=== PATIENT | male | born 1970 | race Caucasian/White ===

== ENCOUNTER 2016-12-28 19:47 | Emergency (ER) | payer SELFPAY ==
[~2016-12-28] VITALS: Ht 190.5 cm; Wt 114.8 kg
[2016-12-28 19:58] VITALS: BP 141/99
== END 2016-12-28 20:00 | disposition left against medical advice (07) ==
LOC: ED 19:47
DX: R07.81 Pleurodynia (principal); Z53.21 Procedure and treatment not carried out due to patient leaving prior to being seen by health care provider; F17.200 Nicotine dependence, unspecified, uncomplicated; W18.2XXA Fall in (into) shower or empty bathtub, initial encounter; Y93.89 Activity, other specified; Y92.9 Unspecified place or not applicable; Y99.9 Unspecified external cause status

== ENCOUNTER 2018-07-01 16:56 | Emergency (ER) | payer SELFPAY ==
[2018-07-01 16:59] VITALS: BP 121/91
== END 2018-07-01 17:31 | disposition home or self-care (01) ==
LOC: ED 16:56
DX: F10.129 Alcohol abuse with intoxication, unspecified (principal); Z51.89 Encounter for other specified aftercare; F17.200 Nicotine dependence, unspecified, uncomplicated

== ENCOUNTER 2018-07-07 10:43 | Inpatient (IN) | payer SELFPAY ==
[~2018-07-07] VITALS: Ht 188 cm; Wt 121.1 kg
[2018-07-07 10:44] VITALS: BP 150/108
[2018-07-07 11:02] LABS: BASO # 0.1 10*3/uL (0.0-0.1); BASO % 0.7 % (0.0-1.0); EOS # 0.3 10*3/uL (0.0-0.4); EOS % 4.3 % (1.0-4.0); HEMATOCRIT 44.8 % (42.0-52.0); HEMOGLOBIN 15.4 g/dl (14.0-18.0); LYMPH # 2.4 10*3/uL (1.3-4.4); LYMPH % 33.8 % (27.0-41.0); MEAN CELL VOLUME 92.9 fl (80.0-94.0); MEAN CORPUSCULAR HGB CONC 34.4 g/dl (33.0-37.0); MEAN PLATELET VOLUME 10.8 fl (9.6-12.3); MONO # 0.7 10*3/uL (0.1-1.0); MONO % 10.2 % (3.0-9.0); NEUT # 3.6 10*3/uL (2.3-7.9); NEUT % 50.7 % (47.0-73.0); PLATELET COUNT AUTOMATED 81 10*3/uL (130-400); RED BLOOD COUNT 4.82 10*6/uL (4.50-5.90); RED CELL DISTRI WIDTH 12.7 % (0-14.5); WHITE BLOOD COUNT 7.2 10*3/uL (4.8-10.8)
[2018-07-07 11:12] LABS: ACT PARTIAL THROMBO TIME 23.4 SECONDS (20.8-31.5); INTERNATIONAL NORM RATIO 0.9 (2.0-3.5)
[2018-07-07 11:17] LABS: ACETAMINOPHEN (TYLENOL) < 5.0 ug/ml (10-30); ALBUMIN 4.1 gm/dl (3.1-4.5); ALKALINE PHOSPHATASE 75 U/L (45-117); BUN 12 mg/dl (7-24); CHLORIDE 105 mmol/L (98-107); CREATININE 0.75 mg/dL (0.70-1.30); POTASSIUM 3.9 mmol/L (3.5-5.1); SGOT/AST 66 IU/L (3-35); SGPT/ALT 58 U/L (12-78); SODIUM 137 mmol/L (136-145); TOTAL PROTEIN 7.8 gm/dL (6.4-8.2)
[2018-07-07 11:21] LABS: BILIRUBIN NEGATIVE (NEGATIVE); BLOOD TRACE-INTACT (NEGATIVE); CLARITY CLEAR (CLEAR); COLOR YELLOW (YELLOW); GLUCOSE NEGATIVE (NEGATIVE); KETONE NEGATIVE (NEGATIVE); LEUKO ESTERASE NEGATIVE (NEGATIVE); NITRITE NEGATIVE (NEGATIVE); PH 5.5 (5.0-9.0); SPECIFIC GRAVITY <= 1.005 (1.005-1.030); UROBILINOGEN 0.2 E.U./dl (0.2-1.0)
[2018-07-07 11:30] LABS: URINE AMPHETAMINES < 1000 (1000ng/ml); URINE BARBITURATES < 200 (200ng/ml); URINE BENZODIAZEPINES < 200 (200ng/ml); URINE CANNABINOIDS (THC) < 50 (50ng/ml); URINE COCAINE < 300 (300ng/ml); URINE METHADONE < 300 (300ng/ml); URINE OPIATES < 300 (300ng/ml)
[2018-07-07 11:33] LABS: URINE PHENCYCLIDINE < 25 (25ng/ml)
[2018-07-07 12:05] VITALS: BP 140/92
[2018-07-07 16:00] VITALS: BP 155/110
[2018-07-07 20:00] VITALS: BP 146/70
[2018-07-08] VITALS: BP 159/97
[2018-07-08 04:00] VITALS: BP 150/98
[2018-07-08 06:18] LABS: BASO % 0.5 % (0.0-1.0); EOS # 0.3 10*3/uL (0.0-0.4); EOS % 3.6 % (1.0-4.0); HEMATOCRIT 40.5 % (42.0-52.0); HEMOGLOBIN 13.5 g/dl (14.0-18.0); LYMPH # 1.8 10*3/uL (1.3-4.4); MEAN CELL VOLUME 94.4 fl (80.0-94.0); MEAN CORPUSCULAR HGB 31.5 pg (27.0-31.0); MEAN CORPUSCULAR HGB CONC 33.3 g/dl (33.0-37.0); MEAN PLATELET VOLUME 10.6 fl (9.6-12.3); MONO # 0.7 10*3/uL (0.1-1.0); MONO % 9.2 % (3.0-9.0); NEUT # 4.7 10*3/uL (2.3-7.9); NEUT % 62.3 % (47.0-73.0); PLATELET COUNT AUTOMATED 75 10*3/uL (130-400); RED BLOOD COUNT 4.29 10*6/uL (4.50-5.90); RED CELL DISTRI WIDTH 12.9 % (0-14.5); WHITE BLOOD COUNT 7.5 10*3/uL (4.8-10.8)
[2018-07-08 06:46] LABS: BUN 12 mg/dl (7-24); CHLORIDE 106 mmol/L (98-107); CHOLESTEROL 177 mg/dL (<200); CREATININE 0.64 mg/dL (0.70-1.30); HDL CHOLESTEROL 57 mg/dl (40-60); LDL CHOLESTEROL 103 mg/dL (9-159); PHOSPHOROUS 3.1 mg/dL (2.5-4.9); POTASSIUM 3.7 mmol/L (3.5-5.1); SODIUM 140 mmol/L (136-145); TRIGLYCERIDES 83 mg/dl (<150); VLDL CHOLESTEROL 17 mg/dL (6-40)
[2018-07-08 07:44] LABS: VITAMIN D, 25-HYDROXY 11.3 ng/mL (30-100)
[2018-07-08 08:00] VITALS: BP 178/100
[2018-07-08 12:00] VITALS: BP 168/90
[2018-07-08 16:00] VITALS: BP 170/106
[2018-07-08 20:00] VITALS: BP 160/100
[2018-07-09] VITALS: BP 160/102
== END 2018-07-09 03:50 | disposition left against medical advice (07) | DRG 813 ==
LOC: ED 10:43 → EDHOLD 11:07 → ICCU 11:52
PROVIDERS: Internal Medicine; Nurse Practitioner Family
DX: D69.6 Thrombocytopenia, unspecified (principal); R73.9 Hyperglycemia, unspecified; R74.0 Nonspecific elevation of levels of transaminase and lactic acid dehydrogenase [LDH]; R60.0 Localized edema; R06.09 Other forms of dyspnea; R05 Cough; R03.0 Elevated blood-pressure reading, without diagnosis of hypertension; R31.21 Asymptomatic microscopic hematuria; F10.129 Alcohol abuse with intoxication, unspecified; F17.210 Nicotine dependence, cigarettes, uncomplicated; E66.9 Obesity, unspecified; D64.9 Anemia, unspecified; Z53.20 Procedure and treatment not carried out because of patient's decision for unspecified reasons; E55.9 Vitamin D deficiency, unspecified; Z68.34 Body mass index [BMI] 34.0-34.9, adult; Z71.6 Tobacco abuse counseling

== ENCOUNTER 2019-08-23 13:45 | Emergency (ER) | payer SELFPAY ==
[~2019-08-23] VITALS: Ht 185.4 cm; Wt 106.1 kg
[2019-08-23 13:47] VITALS: BP 138/97
== END 2019-08-23 15:55 | disposition left against medical advice (07) ==
LOC: ED 13:45
DX: R05 Cough (principal); J02.9 Acute pharyngitis, unspecified; R50.9 Fever, unspecified; F17.200 Nicotine dependence, unspecified, uncomplicated

== ENCOUNTER 2020-02-18 16:57 | Emergency (ER) | payer SELFPAY ==
[~2020-02-18 16:57] MED LIST: AMMONIUM LACTA227 GM T; ASPIRIN ADULT L81 MG PO; B-1100 M1 PO; FLONASE ALLERG9.9 ML NAS; LISINOPRIL10 M1 PO; MUCINEX1200 M1 PO; NATURE'S BLEND F1 MG PO; NORVASC10 MG PO; VISTARIL25 M2 PO; VITAMIN D350 MC2 PO; Vitamin D (50,000 UN PO; ZOFRAN4 MG PO
[2020-02-18] MEDS ORDERED: LASIX40 MG PO (17:30)
[2020-02-18 18:01] LABS: HEMATOCRIT 44.1 % (42.0-52.0); MEAN CELL VOLUME 97.4 fl (80.0-94.0); MEAN CORPUSCULAR HGB 31.3 pg (27.0-31.0); MEAN CORPUSCULAR HGB CONC 32.2 g/dl (33.0-37.0); MEAN PLATELET VOLUME 10.9 fl (9.6-12.3); PLATELET COUNT AUTOMATED 165 10*3/uL (130-400); RED BLOOD COUNT 4.53 10*6/uL (4.50-5.90); RED CELL DISTRI WIDTH 12.6 % (0-14.5); WHITE BLOOD COUNT 9.6 10*3/uL (4.8-10.8)
[2020-02-18 18:17] LABS: ALBUMIN 3.6 gm/dl (3.1-4.5); ALKALINE PHOSPHATASE 70 U/L (45-117); BUN 7 mg/dl (7-24); CHLORIDE 105 mmol/L (98-107); CREATININE 0.79 mg/dL (0.70-1.30); POTASSIUM 3.9 mmol/L (3.5-5.1); SGOT/AST 23 IU/L (3-35); SGPT/ALT 41 U/L (12-78); SODIUM 139 mmol/L (136-145); TOTAL PROTEIN 7.4 gm/dL (6.4-8.2)
[2020-02-18 18:20] LABS: ATYPICAL LYMPHS 1 % (0-0); TOTAL CELLS COUNTED 100 #CELLS
[2020-02-18 18:21] LABS: PLATELET SUFFICIENCY NORMAL (NORMAL)
[2020-02-18 18:22] LABS: TROPONIN I < 0.015 ng/ml (<0.045)
[2020-02-18 18:30] VITALS: BP 125/77
== END 2020-02-18 18:40 | disposition home or self-care (01) ==
LOC: ED 16:57
PROVIDERS: Family Medicine
DX: R60.0 Localized edema (principal); I10 Essential (primary) hypertension; F17.200 Nicotine dependence, unspecified, uncomplicated; Z79.899 Other long term (current) drug therapy; Z79.82 Long term (current) use of aspirin

== ENCOUNTER → 2020-03-03 | Outpatient (CLI) | payer SELFPAY ==
[~2020-03-03] MED LIST changes: +LASIX40 MG PO
== END | disposition home or self-care (01) ==
LOC: CP 14:13
DX: J43.9 Emphysema, unspecified (principal)

== ENCOUNTER → 2020-10-22 | Outpatient (CLI) | payer SELFPAY ==
[~2020-10-22] MED LIST changes: +ALDACTONE25 M1 PO; +CIPRO500 MG PO; +FLAGYL500 MG PO
== END | disposition home or self-care (01) ==
LOC: LAB 13:25
PROVIDERS: ATTEND Nurse Practitioner Family
DX: R19.7 Diarrhea, unspecified (principal)

== ENCOUNTER 2020-10-28 19:59 | Inpatient (IN) | payer SELFPAY ==
[~2020-10-28] VITALS: Ht 190.5 cm; Wt 115.8 kg
[~2020-10-28 19:59] MED LIST changes: -ALDACTONE25 M1 PO; -CIPRO500 MG PO; -FLAGYL500 MG PO
[2020-10-28 20:05] VITALS: BP 119/65
[2020-10-28 20:34] LABS: HEMATOCRIT 41.2 % (42.0-52.0); MEAN CELL VOLUME 89.6 fl (80.0-94.0); MEAN CORPUSCULAR HGB 29.8 pg (27.0-31.0); MEAN CORPUSCULAR HGB CONC 33.3 g/dl (33.0-37.0); PLATELET COUNT AUTOMATED 201 10*3/uL (130-400); RED CELL DISTRI WIDTH 13.2 % (0-14.5); WHITE BLOOD COUNT 19.2 10*3/uL (4.8-10.8)
[2020-10-28 20:51] LABS: ALBUMIN 3.7 gm/dl (3.1-4.5); ALKALINE PHOSPHATASE 84 U/L (45-117); ATYPICAL LYMPHS 1 % (0-0); BUN 17 mg/dl (7-24); CHLORIDE 104 mmol/L (98-107); CREATININE 0.86 mg/dL (0.70-1.30); LIPASE 186 U/L (73-393); POTASSIUM 3.8 mmol/L (3.5-5.1); SGOT/AST 14 IU/L (3-35); SGPT/ALT 29 U/L (12-78); SODIUM 137 mmol/L (136-145); TOTAL CELLS COUNTED 100 #CELLS; TOTAL PROTEIN 7.2 gm/dL (6.4-8.2)
[2020-10-28 20:52] LABS: PLATELET SUFFICIENCY NORMAL (NORMAL)
[2020-10-28 21:33] LABS: BILIRUBIN Negative (Negative); BLOOD Negative (Negative); CLARITY Clear (Clear); COLOR Yellow (Yellow); GLUCOSE Negative (Negative); KETONE Negative (Negative); LEUKO ESTERASE Negative (Negative); NITRITE Negative (Negative); SPECIFIC GRAVITY 1.015 (1.001-1.030)
[2020-10-28 21:51] LABS: BACTERIA TRACE; EPITHELIAL CELLS 0-2
[2020-10-28 23:05] VITALS: BP 112/63
[2020-10-28] MEDS ORDERED: ALDACTONE25 M1 PO (23:09)
[2020-10-29 01:13] VITALS: BP 114/71
[2020-10-29 06:17] LABS: BASO # 0.1 10*3/uL (0.0-0.1); BASO % 0.4 % (0.0-1.0); EOS # 0.7 10*3/uL (0.0-0.4); EOS % 4.1 % (1.0-4.0); LYMPH # 3.3 10*3/uL (1.3-4.4); LYMPH % 20.5 % (27.0-41.0); MEAN CELL VOLUME 90.3 fl (80.0-94.0); MEAN CORPUSCULAR HGB 28.7 pg (27.0-31.0); MEAN CORPUSCULAR HGB CONC 31.8 g/dl (33.0-37.0); MEAN PLATELET VOLUME 10.2 fl (9.6-12.3); MONO # 1.4 10*3/uL (0.1-1.0); MONO % 8.5 % (3.0-9.0); NEUT # 10.5 10*3/uL (2.3-7.9); NEUT % 65.6 % (47.0-73.0); PLATELET COUNT AUTOMATED 182 10*3/uL (130-400); RED BLOOD COUNT 4.21 10*6/uL (4.50-5.90); RED CELL DISTRI WIDTH 13.3 % (0-14.5)
[2020-10-29 06:27] LABS: ALBUMIN 3.3 gm/dl (3.1-4.5); BUN 14 mg/dl (7-24); CHLORIDE 110 mmol/L (98-107); POTASSIUM 3.9 mmol/L (3.5-5.1); SGOT/AST 15 IU/L (3-35); SGPT/ALT 22 U/L (12-78); SODIUM 142 mmol/L (136-145); TOTAL PROTEIN 6.3 gm/dL (6.4-8.2)
[2020-10-29 06:28] LABS: ALKALINE PHOSPHATASE 71 U/L (45-117)
[2020-10-29 08:00] VITALS: BP 101/61
[2020-10-29 18:18] VITALS: BP 109/70
[2020-10-29 18:30] VITALS: BP 108/75
[2020-10-29 20:00] VITALS: BP 128/83
[2020-10-30] VITALS: BP 111/80
[2020-10-30 06:31] LABS: BASO # 0.1 10*3/uL (0.0-0.1); BASO % 0.4 % (0.0-1.0); EOS # 0.6 10*3/uL (0.0-0.4); EOS % 4.7 % (1.0-4.0); HEMATOCRIT 37.3 % (42.0-52.0); LYMPH % 16.1 % (27.0-41.0); MEAN CELL VOLUME 90.8 fl (80.0-94.0); MEAN CORPUSCULAR HGB 29.4 pg (27.0-31.0); MEAN CORPUSCULAR HGB CONC 32.4 g/dl (33.0-37.0); MEAN PLATELET VOLUME 10.3 fl (9.6-12.3); MONO # 1.1 10*3/uL (0.1-1.0); MONO % 8.7 % (3.0-9.0); NEUT # 8.7 10*3/uL (2.3-7.9); NEUT % 69.1 % (47.0-73.0); PLATELET COUNT AUTOMATED 172 10*3/uL (130-400); RED BLOOD COUNT 4.11 10*6/uL (4.50-5.90); RED CELL DISTRI WIDTH 13.2 % (0-14.5); WHITE BLOOD COUNT 12.6 10*3/uL (4.8-10.8)
[2020-10-30 06:36] LABS: BUN 13 mg/dl (7-24); CHLORIDE 109 mmol/L (98-107); CREATININE 0.66 mg/dL (0.70-1.30); POTASSIUM 3.8 mmol/L (3.5-5.1); SODIUM 140 mmol/L (136-145)
[2020-10-30 08:30] VITALS: BP 114/77
[2020-10-30 09:04] VITALS: BP 85/48
[2020-10-30 09:19] VITALS: BP 122/81
[2020-10-30 09:34] VITALS: BP 116/79
[2020-10-30] MEDS ORDERED: FLAGYL500 MG PO (12:11)
[2020-10-30] MEDS ORDERED: CIPRO500 MG PO (12:11)
== END 2020-10-30 13:09 | disposition home or self-care (01) | DRG 871 ==
LOC: ED 19:59 → EDHOLD 22:53 → 5E 22:53
PROVIDERS: Family Medicine; Internal Medicine; Physician Assistant; ADMIT Internal Medicine; ATTEND Internal Medicine
PROC: 0DBM8ZZ Excision of Descending Colon, Via Natural or Artificial Opening Endoscopic (ICD-10-PCS; principal; 2020-10-30)
PROC: 0DBL8ZZ Excision of Transverse Colon, Via Natural or Artificial Opening Endoscopic (ICD-10-PCS; 2020-10-30)
PROC: 0DBN8ZZ Excision of Sigmoid Colon, Via Natural or Artificial Opening Endoscopic (ICD-10-PCS; 2020-10-30)
PROC: 0DBP8ZX Excision of Rectum, Via Natural or Artificial Opening Endoscopic, Diagnostic (ICD-10-PCS; 2020-10-30)
DX: A41.9 Sepsis, unspecified organism (principal); R65.21 Severe sepsis with septic shock; K56.609 Unspecified intestinal obstruction, unspecified as to partial versus complete obstruction; I38 Endocarditis, valve unspecified; K92.1 Melena; K62.89 Other specified diseases of anus and rectum; E83.41 Hypermagnesemia; F17.210 Nicotine dependence, cigarettes, uncomplicated; E66.9 Obesity, unspecified; K63.5 Polyp of colon; E87.8 Other disorders of electrolyte and fluid balance, not elsewhere classified; D49.0 Neoplasm of unspecified behavior of digestive system; Z71.6 Tobacco abuse counseling; Z79.899 Other long term (current) drug therapy; Z68.31 Body mass index [BMI] 31.0-31.9, adult

== ENCOUNTER 2022-06-27 22:30 | Emergency (ER) | payer SELFPAY ==
[~2022-06-27 22:30] MED LIST changes: +ALDACTONE25 M1 PO; +CIPRO500 MG PO; +FLAGYL500 MG PO
== END 2022-06-27 23:19 | disposition left against medical advice (07) ==
LOC: ED 22:30
DX: R10.30 Lower abdominal pain, unspecified (principal); Z53.21 Procedure and treatment not carried out due to patient leaving prior to being seen by health care provider

== ENCOUNTER 2024-09-14 10:18 | Emergency (ER) | payer MEDICARE ==
[~2024-09-14] VITALS: Ht 185.4 cm; Wt 121.1 kg
[2024-09-14 10:36] VITALS: BP 101/62
[2024-09-14] MEDS ORDERED: SODIUM CHLORIDE 0.9% 1,000 ML IV ONE (10:50)
[2024-09-14 11:28] LABS: BASO % 0.2 % (0.0-1.0); EOS # 0.2 10*3/uL (0.0-0.4); EOS % 2.3 % (1.0-4.0); HEMATOCRIT 28.1 % (42.0-52.0); MEAN CELL VOLUME 92.4 fl (80.0-94.0); MEAN CORPUSCULAR HGB 28.6 pg (27.0-31.0); MEAN PLATELET VOLUME 10.3 fl (9.6-12.3); MONO # 1.1 10*3/uL (0.1-1.0); MONO % 11.2 % (3.0-9.0); NEUT # 7.8 10*3/uL (2.3-7.9); NEUT % 79.2 % (47.0-73.0); PLATELET COUNT AUTOMATED 176 10*3/uL (130-400); RED BLOOD COUNT 3.04 10*6/uL (4.50-5.90); WHITE BLOOD COUNT 9.8 10*3/uL (4.8-10.8)
[2024-09-14 11:47] LABS: BUN 6 mg/dl (9-23); CHLORIDE 100 mmol/L (98-107); POTASSIUM 2.6 mmol/L (3.4-5.1)
[2024-09-14] MEDS ORDERED: POTASSIUM CHLORIDE 20 MEQ TAB PO ONE (12:15)
[2024-09-14] MEDS ORDERED: POTASSIUM CHLO20 ME3 PO (16:08)
== END 2024-09-14 16:14 | disposition home or self-care (01) ==
LOC: ED 10:18
PROVIDERS: Emergency Medicine
DX: R10.9 Unspecified abdominal pain (principal); E87.6 Hypokalemia; T85.698A Other mechanical complication of other specified internal prosthetic devices, implants and grafts, initial encounter; I10 Essential (primary) hypertension; F17.200 Nicotine dependence, unspecified, uncomplicated; F10.10 Alcohol abuse, uncomplicated; Z98.890 Other specified postprocedural states; Y82.8 Other medical devices associated with adverse incidents; Y92.89 Other specified places as the place of occurrence of the external cause

== ENCOUNTER 2024-12-15 09:02 | Emergency (ER) | payer MEDICARE ==
[~2024-12-15] VITALS: Ht 185.4 cm; Wt 108.9 kg
[~2024-12-15 09:02] MED LIST changes: +POTASSIUM CHLO20 ME3 PO
[2024-12-15 09:11] VITALS: BP 101/75
[2024-12-15] MEDS ORDERED: ELIQUIS5 M1 PO (09:12)
[2024-12-15] MEDS ORDERED: TAMSULOSIN HCL0.4 MG PO (09:13)
[2024-12-15] MEDS ORDERED: NEURONTIN300 MG PO (09:13)
[2024-12-15] MEDS ORDERED: Acetaminophen/Oxycodone 5 MG/325 MG TABLET PO ONE (09:20)
[2024-12-15] MEDS ORDERED: MELOXICAM15 MG PO (09:21)
== END 2024-12-15 09:49 | disposition home or self-care (01) ==
LOC: ED 09:02
DX: M25.512 Pain in left shoulder (principal); I10 Essential (primary) hypertension; F17.200 Nicotine dependence, unspecified, uncomplicated; Z79.899 Other long term (current) drug therapy; Z98.890 Other specified postprocedural states

== ENCOUNTER 2024-12-31 04:08 | Emergency (ER) | payer MEDICARE ==
[~2024-12-31] VITALS: Ht 185.4 cm; Wt 111.1 kg
[~2024-12-31 04:08] MED LIST changes: +ELIQUIS5 M1 PO; +MELOXICAM15 MG PO; +NEURONTIN300 MG PO; +TAMSULOSIN HCL0.4 MG PO
[2024-12-31] MEDS ORDERED: dilTIAZem Hydrochloride 25 MG/5 ML VIAL IV ONE (04:30)
[2024-12-31 04:36] LABS: BASO % 0.2 % (0.0-1.0); EOS # 0.4 10*3/uL (0.0-0.4); EOS % 3.9 % (1.0-4.0); HEMATOCRIT 33.8 % (42.0-52.0); MEAN CELL VOLUME 79.3 fl (80.0-94.0); MEAN CORPUSCULAR HGB 24.2 pg (27.0-31.0); MEAN CORPUSCULAR HGB CONC 30.5 g/dl (33.0-37.0); MEAN PLATELET VOLUME 10.2 fl (9.6-12.3); MONO # 1.2 10*3/uL (0.1-1.0); MONO % 10.5 % (3.0-9.0); NEUT # 8.8 10*3/uL (2.3-7.9); NEUT % 76.9 % (47.0-73.0); PLATELET COUNT AUTOMATED 175 10*3/uL (130-400); RED BLOOD COUNT 4.26 10*6/uL (4.50-5.90); RED CELL DISTRI WIDTH 16.9 % (0-14.5); WHITE BLOOD COUNT 11.4 10*3/uL (4.8-10.8)
[2024-12-31 04:55] LABS: BUN 13 mg/dl (9-23); CHLORIDE 96 mmol/L (98-107); POTASSIUM 3.5 mmol/L (3.4-5.1)
[2024-12-31] MEDS ORDERED: SODIUM CHLORIDE 0.9% 500 ML IV ONE (05:05)
[2024-12-31 05:13] VITALS: BP 96/64
== END 2024-12-31 06:02 | disposition home or self-care (01) ==
LOC: ED 04:08
PROVIDERS: Internal Medicine
DX: I48.20 Chronic atrial fibrillation, unspecified (principal); E87.1 Hypo-osmolality and hyponatremia; D50.9 Iron deficiency anemia, unspecified; C18.9 Malignant neoplasm of colon, unspecified; C79.9 Secondary malignant neoplasm of unspecified site; G47.00 Insomnia, unspecified; I10 Essential (primary) hypertension; F10.10 Alcohol abuse, uncomplicated; F17.200 Nicotine dependence, unspecified, uncomplicated; Z98.890 Other specified postprocedural states

== ENCOUNTER 2025-01-05 01:28 | Emergency (ER) | payer MEDICARE ==
[~2025-01-05] VITALS: Ht 187.9 cm; Wt 131.5 kg
[2025-01-05 01:40] VITALS: BP 110/78
[2025-01-05] MEDS ORDERED: Dexamethasone Sodium Phospha 20 MG/5 ML VIAL IM ONE (02:40)
== END 2025-01-05 03:01 | disposition home or self-care (01) ==
LOC: ED 01:28
DX: S46.912A Strain of unspecified muscle, fascia and tendon at shoulder and upper arm level, left arm, initial encounter (principal); I48.91 Unspecified atrial fibrillation; F17.200 Nicotine dependence, unspecified, uncomplicated; Z79.899 Other long term (current) drug therapy; Z98.890 Other specified postprocedural states; X58.XXXA Exposure to other specified factors, initial encounter; Y93.89 Activity, other specified; Y92.89 Other specified places as the place of occurrence of the external cause; Y99.8 Other external cause status

== ENCOUNTER 2025-02-09 19:50 | Emergency (ER) | payer MEDICARE ==
[~2025-02-09] VITALS: Ht 185.4 cm; Wt 110.2 kg
[~2025-02-09 19:50] MED LIST changes: +'zithromax250 MG PO; +CEFPODOXIME PR200 M1 PO; +LASIX20 MG PO; +LOPRESSOR25 MG PO; +OXYCODONE HCL5 MG PO; +OXYCONTIN10 M1 PO; +VAZALORE81 MG PO
[2025-02-09 20:35] LABS: BASO % 0.2 % (0.0-1.0); EOS # 0.1 10*3/uL (0.0-0.4); EOS % 1.8 % (1.0-4.0); HEMATOCRIT 32.8 % (42.0-52.0); MEAN CELL VOLUME 84.5 fl (80.0-94.0); MEAN CORPUSCULAR HGB CONC 30.8 g/dl (33.0-37.0); MONO # 0.5 10*3/uL (0.1-1.0); MONO % 7.2 % (3.0-9.0); NEUT # 5.4 10*3/uL (2.3-7.9); NEUT % 80.7 % (47.0-73.0); PLATELET COUNT AUTOMATED 83 10*3/uL (130-400); RED BLOOD COUNT 3.88 10*6/uL (4.50-5.90); RED CELL DISTRI WIDTH 21.9 % (0-14.5); WHITE BLOOD COUNT 6.6 10*3/uL (4.8-10.8)
[2025-02-09 20:56] LABS: BUN 25 mg/dl (9-23); CHLORIDE 98 mmol/L (98-107); POTASSIUM 3.9 mmol/L (3.4-5.1)
[2025-02-09] MEDS ORDERED: SODIUM CHLORIDE 0.9% 1,000 ML IV ONE (21:10)
[2025-02-09] MEDS ORDERED: OXYCODONE HCL (IR) 10 MG TABLET PO ONE (23:55)
[2025-02-10 00:52] VITALS: BP 94/52
== END 2025-02-10 00:43 | disposition home or self-care (01) ==
LOC: ED 19:50
PROVIDERS: Internal Medicine
DX: C34.91 Malignant neoplasm of unspecified part of right bronchus or lung (principal); N17.9 Acute kidney failure, unspecified; J90 Pleural effusion, not elsewhere classified; D64.9 Anemia, unspecified; E87.29 Other acidosis; R00.0 Tachycardia, unspecified; Z79.899 Other long term (current) drug therapy; Z98.890 Other specified postprocedural states; Z87.891 Personal history of nicotine dependence

== ENCOUNTER 2025-02-12 12:52 | Emergency (ER) | payer MEDICARE ==
[~2025-02-12] VITALS: Ht 185.4 cm; Wt 110.2 kg
[2025-02-12 13:12] VITALS: BP 98/65
[2025-02-12] MEDS ORDERED: SODIUM CHLORIDE 0.9% 1,000 ML IV SCH (13:45)
[2025-02-12 14:07] LABS: EOS # 0.1 10*3/uL (0.0-0.4); EOS % 2.7 % (1.0-4.0); HEMATOCRIT 28.1 % (42.0-52.0); MEAN CELL VOLUME 83.4 fl (80.0-94.0); MEAN CORPUSCULAR HGB 25.8 pg (27.0-31.0); MONO # 0.6 10*3/uL (0.1-1.0); MONO % 13.8 % (3.0-9.0); NEUT % 74.1 % (47.0-73.0); PLATELET COUNT AUTOMATED 98 10*3/uL (130-400); RED BLOOD COUNT 3.37 10*6/uL (4.50-5.90); RED CELL DISTRI WIDTH 21.2 % (0-14.5); WHITE BLOOD COUNT 4.1 10*3/uL (4.8-10.8)
[2025-02-12 14:16] LABS: ACT PARTIAL THROMBO TIME 27.9 SECONDS (20.0-32.1)
[2025-02-12 14:26] LABS: BILIRUBIN Negative (Negative); BLOOD Negative (Negative); CLARITY Clear (Clear); COLOR Yellow (Yellow); GLUCOSE Negative (Negative); KETONE Negative (Negative); LEUKO ESTERASE Negative (Negative); NITRITE Negative (Negative)
[2025-02-12 14:33] LABS: ALKALINE PHOSPHATASE 78 U/L (46-116); BUN 13 mg/dl (9-23); CHLORIDE 95 mmol/L (98-107); POTASSIUM 3.4 mmol/L (3.4-5.1); SGPT/ALT 17 U/L (5-49); TOTAL PROTEIN 5.9 gm/dL (6.0-8.0)
== END 2025-02-12 16:24 | disposition home or self-care (01) ==
LOC: ED 12:52
PROVIDERS: Internal Medicine
DX: C34.91 Malignant neoplasm of unspecified part of right bronchus or lung (principal); I10 Essential (primary) hypertension; Z79.899 Other long term (current) drug therapy; Z98.890 Other specified postprocedural states

== ENCOUNTER 2025-03-15 00:40 | Emergency (ER) | payer MEDICARE ==
[~2025-03-15] VITALS: Ht 185.4 cm; Wt 113.4 kg
[~2025-03-15 00:40] MED LIST changes: +AFRIN 15 ML15 M1 NAS; +AMIODARONE HYD200 MG PO; +DECADRON4 MG PO; +FUROSEMIDE40 MG PO; +METOPROLOL SUCC25 M2 PO; +OXYCODONE HCL10 M1 PO; +VIBRA-TAB100 MG PO
[2025-03-15 00:52] VITALS: BP 106/55
[2025-03-15] MEDS ORDERED: FUROSEMIDE 40 MG/4 ML VIAL IV ONE (01:00)
[2025-03-15 01:25] LABS: BASO # 0.0 10*3/uL (0.0-0.1); BASO % 0.2 % (0.0-1.0); EOS # 0.2 10*3/uL (0.0-0.4); EOS % 1.8 % (1.0-4.0); MEAN CELL VOLUME 86.8 fl (80.0-94.0); MEAN CORPUSCULAR HGB 25.7 pg (27.0-31.0); MEAN PLATELET VOLUME 10.1 fl (9.6-12.3); MONO # 1.0 10*3/uL (0.1-1.0); MONO % 9.4 % (3.0-9.0); NEUT # 8.5 10*3/uL (2.3-7.9); NEUT % 80.7 % (47.0-73.0); NUCLEATED RED BLOOD CELL 0.0 % (0.0-0.0); NUCLEATED RED BLOOD CELL 0.0 10*3/uL (0.0-0.0); PLATELET COUNT AUTOMATED 161 10*3/uL (130-400); RED CELL DISTRI WIDTH 18.6 % (0-14.5)
[2025-03-15 02:00] LABS: BUN 12 mg/dl (9-23); SGPT/ALT 16 U/L (5-49)
[2025-03-15] MEDS ORDERED: POTASSIUM CHLO20 MEQ PO (02:13)
[2025-03-15] MEDS ORDERED: LASIX40 MG PO (02:58)
== END 2025-03-15 03:01 | disposition home or self-care (01) ==
LOC: ED 00:40
PROVIDERS: Emergency Medicine
DX: I87.2 Venous insufficiency (chronic) (peripheral) (principal); E87.6 Hypokalemia; C34.90 Malignant neoplasm of unspecified part of unspecified bronchus or lung; D50.9 Iron deficiency anemia, unspecified; Z87.891 Personal history of nicotine dependence; Z98.890 Other specified postprocedural states; Z79.899 Other long term (current) drug therapy

== ENCOUNTER 2025-04-12 08:32 | Emergency (ER) | payer MEDICARE ==
[~2025-04-12] VITALS: Ht 185.4 cm; Wt 111.1 kg
[~2025-04-12 08:32] MED LIST changes: +POTASSIUM CHLO20 MEQ PO
[2025-04-12] MEDS ORDERED: FUROSEMIDE 40 MG/4 ML VIAL IV ONE (08:35)
[2025-04-12 08:40] VITALS: BP 103/54
[2025-04-12 08:55] LABS: BASO # 0.1 10*3/uL (0.0-0.1); BASO % 0.3 % (0.0-1.0); EOS # 1.0 10*3/uL (0.0-0.4); EOS % 6.7 % (1.0-4.0); MEAN CELL VOLUME 82.7 fl (80.0-94.0); MEAN CORPUSCULAR HGB 24.3 pg (27.0-31.0); MEAN PLATELET VOLUME 10.5 fl (9.6-12.3); MONO # 1.5 10*3/uL (0.1-1.0); MONO % 10.1 % (3.0-9.0); NEUT # 11.5 10*3/uL (2.3-7.9); NEUT % 78.9 % (47.0-73.0); NUCLEATED RED BLOOD CELL 0.0 % (0.0-0.0); NUCLEATED RED BLOOD CELL 0.0 10*3/uL (0.0-0.0); PLATELET COUNT AUTOMATED 206 10*3/uL (130-400); RED CELL DISTRI WIDTH 17.5 % (0-14.5)
[2025-04-12] MEDS ORDERED: AMOX-CLAV 875-1 EACH PO (08:56)
[2025-04-12] MEDS ORDERED: Ondansetron4 MG PO (08:57)
[2025-04-12] MEDS ORDERED: STOOL SOFTENER100 MG PO (08:58)
[2025-04-12 10:07] LABS: BUN 8 mg/dl (9-23)
[2025-04-12] MEDS ORDERED: LASIX40 MG PO (10:17)
== END 2025-04-12 10:24 | disposition home or self-care (01) ==
LOC: ED 08:32
PROVIDERS: Emergency Medicine
DX: R22.43 Localized swelling, mass and lump, lower limb, bilateral (principal); Z98.890 Other specified postprocedural states; Z90.89 Acquired absence of other organs